=== PATIENT | male | born 1945 | race Two or more races ===

== ENCOUNTER 2017-09-02 07:34 | Outpatient (CLI) | payer OTHER | END 2017-09-02 07:53 | disposition home or self-care (01) | LOC: LAB 07:34 | DX: J44.9 Chronic obstructive pulmonary disease, unspecified (principal); C34.31 Malignant neoplasm of lower lobe, right bronchus or lung; J43.1 Panlobular emphysema; I25.10 Atherosclerotic heart disease of native coronary artery without angina pectoris; E04.8 Other specified nontoxic goiter; K21.9 Gastro-esophageal reflux disease without esophagitis; D53.9 Nutritional anemia, unspecified; G47.33 Obstructive sleep apnea (adult) (pediatric); D64.9 Anemia, unspecified; N39.0 Urinary tract infection, site not specified; R10.9 Unspecified abdominal pain; E78.5 Hyperlipidemia, unspecified; E11.9 Type 2 diabetes mellitus without complications; R73.09 Other abnormal glucose; R41.3 Other amnesia; E78.00 Pure hypercholesterolemia, unspecified; I10 Essential (primary) hypertension ==

== ENCOUNTER → 2017-10-14 12:16 | Outpatient (CLI) | payer OTHER | END | disposition home or self-care (01) | LOC: LAB 12:16 | DX: N40.0 Benign prostatic hyperplasia without lower urinary tract symptoms (principal) ==

== ENCOUNTER 2017-12-09 07:57 | Outpatient (CLI) | payer OTHER ==
[2018-01-03] MEDS ORDERED: TIZANIDINE HCL2 MG PO (17:29)
[2018-01-03] MEDS ORDERED: PROTONIX40 MG PO (17:29)
[2018-01-03] MEDS ORDERED: DICLOFENAC POTA50 MG PO (17:29)
== END 2017-12-09 08:17 | disposition home or self-care (01) ==
LOC: LAB 07:57
DX: E11.65 Type 2 diabetes mellitus with hyperglycemia (principal); E88.81 Metabolic syndrome and other insulin resistance; F52.21 Male erectile disorder; E66.3 Overweight; H26.9 Unspecified cataract; I10 Essential (primary) hypertension; E78.2 Mixed hyperlipidemia; E04.2 Nontoxic multinodular goiter; E06.3 Autoimmune thyroiditis; E55.9 Vitamin D deficiency, unspecified; K63.5 Polyp of colon; K21.9 Gastro-esophageal reflux disease without esophagitis; Z80.42 Family history of malignant neoplasm of prostate; N40.0 Benign prostatic hyperplasia without lower urinary tract symptoms; N40.1 Benign prostatic hyperplasia with lower urinary tract symptoms; N28.1 Cyst of kidney, acquired; K13.1 Cheek and lip biting; K90.0 Celiac disease; H35.319 Nonexudative age-related macular degeneration, unspecified eye

== ENCOUNTER 2017-12-16 09:53 | Outpatient (CLI) | payer OTHER ==
[2018-01-03] MEDS ORDERED: PROTONIX40 MG PO (17:29)
[2018-01-03] MEDS ORDERED: TIZANIDINE HCL2 MG PO (17:29)
[2018-01-03] MEDS ORDERED: DICLOFENAC POTA50 MG PO (17:29)
== END 2017-12-16 10:04 | disposition home or self-care (01) ==
LOC: LAB 09:53
DX: E11.65 Type 2 diabetes mellitus with hyperglycemia (principal); E88.81 Metabolic syndrome and other insulin resistance; F52.21 Male erectile disorder; E66.3 Overweight; H26.9 Unspecified cataract; I10 Essential (primary) hypertension; E78.2 Mixed hyperlipidemia; E04.2 Nontoxic multinodular goiter; E06.3 Autoimmune thyroiditis; E55.9 Vitamin D deficiency, unspecified; K63.5 Polyp of colon; K21.9 Gastro-esophageal reflux disease without esophagitis; Z80.42 Family history of malignant neoplasm of prostate; N40.0 Benign prostatic hyperplasia without lower urinary tract symptoms; N40.1 Benign prostatic hyperplasia with lower urinary tract symptoms; N28.1 Cyst of kidney, acquired; H35.319 Nonexudative age-related macular degeneration, unspecified eye

== ENCOUNTER 2018-04-09 08:32 | Outpatient (CLI) | payer OTHER ==
[~2018-04-09 08:32] MED LIST: DICLOFENAC POTA50 MG PO; PROTONIX40 MG PO; TIZANIDINE HCL2 MG PO
== END 2018-04-09 09:10 | disposition home or self-care (01) ==
LOC: LAB 08:32
DX: E11.69 Type 2 diabetes mellitus with other specified complication (principal); E11.65 Type 2 diabetes mellitus with hyperglycemia; E78.00 Pure hypercholesterolemia, unspecified; I10 Essential (primary) hypertension; J44.9 Chronic obstructive pulmonary disease, unspecified; C34.31 Malignant neoplasm of lower lobe, right bronchus or lung; J43.1 Panlobular emphysema; I25.10 Atherosclerotic heart disease of native coronary artery without angina pectoris; E04.8 Other specified nontoxic goiter; E66.09 Other obesity due to excess calories; K21.9 Gastro-esophageal reflux disease without esophagitis; G47.33 Obstructive sleep apnea (adult) (pediatric); E78.89 Other lipoprotein metabolism disorders

== ENCOUNTER 2018-05-29 08:22 | Outpatient (CLI) | payer OTHER | END 2018-05-29 08:27 | disposition home or self-care (01) | LOC: LAB 08:22 | DX: I10 Essential (primary) hypertension (principal); E06.3 Autoimmune thyroiditis; E11.65 Type 2 diabetes mellitus with hyperglycemia; E55.9 Vitamin D deficiency, unspecified; E88.81 Metabolic syndrome and other insulin resistance; N40.0 Benign prostatic hyperplasia without lower urinary tract symptoms; C73 Malignant neoplasm of thyroid gland; E11.39 Type 2 diabetes mellitus with other diabetic ophthalmic complication; I15.8 Other secondary hypertension; D68.32 Hemorrhagic disorder due to extrinsic circulating anticoagulants; D69.8 Other specified hemorrhagic conditions; C34.91 Malignant neoplasm of unspecified part of right bronchus or lung; R97.8 Other abnormal tumor markers; D64.89 Other specified anemias; N39.0 Urinary tract infection, site not specified; Z12.11 Encounter for screening for malignant neoplasm of colon; Z12.5 Encounter for screening for malignant neoplasm of prostate; C61 Malignant neoplasm of prostate; E78.49 Other hyperlipidemia; R80.8 Other proteinuria; B95.2 Enterococcus as the cause of diseases classified elsewhere ==

== ENCOUNTER 2018-07-05 09:29 | Outpatient (CLI) | payer OTHER | END 2018-07-05 13:27 | disposition home or self-care (01) | LOC: LAB 09:29 | DX: E11.39 Type 2 diabetes mellitus with other diabetic ophthalmic complication (principal); I15.8 Other secondary hypertension; D68.32 Hemorrhagic disorder due to extrinsic circulating anticoagulants; D69.8 Other specified hemorrhagic conditions ==

== ENCOUNTER → 2018-10-08 08:55 | Outpatient (CLI) | payer OTHER | END | disposition home or self-care (01) | LOC: LAB 08:55 | DX: E06.3 Autoimmune thyroiditis (principal); E88.81 Metabolic syndrome and other insulin resistance; I10 Essential (primary) hypertension; E11.65 Type 2 diabetes mellitus with hyperglycemia; D64.89 Other specified anemias; N39.0 Urinary tract infection, site not specified; R10.84 Generalized abdominal pain; E03.8 Other specified hypothyroidism; E78.49 Other hyperlipidemia; E55.9 Vitamin D deficiency, unspecified; R80.8 Other proteinuria; N40.0 Benign prostatic hyperplasia without lower urinary tract symptoms; Z12.5 Encounter for screening for malignant neoplasm of prostate ==

== ENCOUNTER 2018-12-13 11:27 | Outpatient (CLI) | payer OTHER | END 2018-12-13 15:42 | disposition home or self-care (01) | LOC: SONOGRAMA 11:27 | DX: E04.1 Nontoxic single thyroid nodule (principal) ==

== ENCOUNTER 2019-02-15 08:22 | Outpatient (CLI) | payer OTHER | END 2019-02-15 08:47 | disposition home or self-care (01) | LOC: LAB 08:22 | DX: E11.65 Type 2 diabetes mellitus with hyperglycemia (principal); I10 Essential (primary) hypertension; J44.9 Chronic obstructive pulmonary disease, unspecified; J44.1 Chronic obstructive pulmonary disease with (acute) exacerbation; C34.31 Malignant neoplasm of lower lobe, right bronchus or lung; E04.8 Other specified nontoxic goiter; G47.33 Obstructive sleep apnea (adult) (pediatric); D64.89 Other specified anemias; N39.0 Urinary tract infection, site not specified; R10.84 Generalized abdominal pain; E03.8 Other specified hypothyroidism; E78.49 Other hyperlipidemia; R07.89 Other chest pain; R80.8 Other proteinuria; E11.9 Type 2 diabetes mellitus without complications; N40.0 Benign prostatic hyperplasia without lower urinary tract symptoms; Z12.5 Encounter for screening for malignant neoplasm of prostate; E04.2 Nontoxic multinodular goiter ==

== ENCOUNTER 2019-11-29 10:42 | Outpatient (CLI) | payer OTHER | END 2019-11-29 10:50 | disposition home or self-care (01) | LOC: NUCLEAR 10:42 | PROVIDERS: ATTEND Radiology Diagnostic Radiology | DX: I83.028 Varicose veins of left lower extremity with ulcer other part of lower leg (principal); I82.493 Acute embolism and thrombosis of other specified deep vein of lower extremity, bilateral; I87.2 Venous insufficiency (chronic) (peripheral) ==

== ENCOUNTER 2019-12-19 07:52 | Outpatient (CLI) | payer OTHER | END 2019-12-19 08:12 | disposition home or self-care (01) | LOC: LAB 07:52 | PROVIDERS: ATTEND Internal Medicine Pulmonary Disease | DX: C34.31 Malignant neoplasm of lower lobe, right bronchus or lung (principal); J44.9 Chronic obstructive pulmonary disease, unspecified; J44.1 Chronic obstructive pulmonary disease with (acute) exacerbation; E08.65 Diabetes mellitus due to underlying condition with hyperglycemia; E04.8 Other specified nontoxic goiter; C73 Malignant neoplasm of thyroid gland; G47.33 Obstructive sleep apnea (adult) (pediatric) ==

== ENCOUNTER 2022-09-19 07:40 | Outpatient (CLI) | payer OTHER | END 2022-09-19 07:42 | disposition home or self-care (01) | LOC: RX STUDY 07:40 | PROVIDERS: ATTEND Internal Medicine Gastroenterology | DX: R10.13 Epigastric pain (principal); R13.19 Other dysphagia ==

== ENCOUNTER 2024-01-19 12:22 | Outpatient (CLI) | payer OTHER | END 2024-01-19 12:31 | disposition home or self-care (01) | LOC: RAD 12:22 | PROVIDERS: ATTEND Orthopaedic Surgery Orthopaedic Surgery of the Spine | DX: M43.07 Spondylolysis, lumbosacral region (principal); M50.322 Other cervical disc degeneration at C5-C6 level; M54.16 Radiculopathy, lumbar region ==